=== PATIENT | female | born 1970 | race African-American/Black ===

== ENCOUNTER 2021-07-10 03:17 | Emergency (ER) | payer OTHER ==
[~2021-07-10] VITALS: Ht 152.4 cm; Wt 73.9 kg
[2021-07-10] MEDS ORDERED: DICLOFENAC SODI75 MG PO (04:46)
== END 2021-07-10 06:10 | disposition home or self-care (01) ==
LOC: ER 03:17
DX: S39.92XA Unspecified injury of lower back, initial encounter (principal); S89.92XA Unspecified injury of left lower leg, initial encounter; W19.XXXA Unspecified fall, initial encounter; Y92.89 Other specified places as the place of occurrence of the external cause